=== PATIENT | male | born 1960 | race Caucasian/White ===

== ENCOUNTER 2024-01-04 12:56 | Emergency (ER) | payer OTHER, SELFPAY ==
[2024-01-04 13:03] VITALS: BP 143/86; PULSE 84; RESP 16; TEMP 36.3; O2SAT 96
--- NOTE | 2024-01-04 13:07 | ED.WOUNDLAC ---
HPI - Wound/Laceration General Chief Complaint: Wound/Laceration Stated Complaint: Left Finger Injruy/Cut Source: patient Mode of arrival: ambulatory Limitations: no limitations History of Present Illness HPI narrative: 63-year-old male presented for complaint of laceration to the left thumb and right index finger. Injury occurred today using a new pocket knife to help get himself out of a [employer]ms. Applied Blood Stop, wrapped the finger with twine, and applied paper towels. Site continues to bleed. States he took 2 aspirin this morning for headache. Denies decreased ROM. Unsure of tetanus. Related Data Home Medications Medication Instructions Recorded Confirmed atorvastatin 10 mg tablet 10 mg PO DAILY 01/04/24 01/04/24 hydrochlorothiazide 12.5 mg tablet 12.5 mg PO DAILY 01/04/24 01/04/24 lisinopril 20 mg tablet 20 mg PO DAILY 01/04/24 01/04/24 nebivolol 5 mg tablet 5 mg PO DAILY 01/04/24 01/04/24 sildenafil 100 mg tablet 100 mg PO DAILY 01/04/24 01/04/24 tamsulosin 0.4 mg capsule 0.4 mg PO DAILY 01/04/24 01/04/24 valacyclovir 500 mg tablet 500 mg PO BID 01/04/24 01/04/24 Allergies Allergy/AdvReac Type Severity Reaction Status Date / Time No Known Allergies Allergy Unverified 01/04/24 13:05 Review of Systems Review of Systems: CONSTITUTIONAL: Denies body aches, fever, chills, or sweats. CARDIOVASCULAR: Denies chest pain, palpitations, or edema. RESPIRATORY: Denies cough or dyspnea. GASTROINTESTINAL: Denies abdominal pain, nausea, vomiting, or diarrhea. SKIN: laceration left index and thumb MUSCULOSKELETAL: Denies back pain, joint pain, or myalgia. NEUROLOGIC: Denies numbness, tingling, or weakness. [facility] Past Medical History Medical History (Updated 01/04/24 @ 14:34 by Reba Ferrell APRN) Hypertension Prostate cancer Comments At time of signature, I have reviewed and agree with nursing past medical, surgical, social and family history unless otherwise noted. Please see nursing chart for further information. There is no relevant family history pertinent to the presenting complaint Exam Narrative: GENERAL: Well-appearing HEAD: Normocephalic, atraumatic. CHEST: Clear to auscultation. HEART: Regular rate and rhythm. SKIN: Warm, dry. Left 2nd digit distal phalanx with approx 1cm linear laceration, mild gaping; Left 1st digit distal phalanx with <0.5cm linear laceration, mild gaping, bleeding. No nail or tendon involvement. NEURO: Alert and oriented x3. Extrem: Hand/finger images: 1. location of thumb lac 2. location of 2nd digit lac Course Course Emergency Course: Patient is aware of diagnosis, understands and agrees to treatment plan. Anticipatory guidance given. Patient agrees to follow-up as directed and is aware of reasons to seek care at the emergency department. Portions of this record may have been created with voice recognition software Level of Care: Express Care Visit Vital Signs Vital signs: Vital Signs Temperature 97.3 F L 01/04/24 13:03 Pulse Rate 84 01/04/24 13:03 Respiratory Rate 16 01/04/24 13:03 Blood Pressure 143/86 H 01/04/24 13:03 Pulse Oximetry 96 01/04/24 13:03 Temperature 97.3 F L 01/04/24 13:03 Pulse Rate 84 01/04/24 13:03 Respiratory Rate 16 01/04/24 13:03 Blood Pressure 143/86 H 01/04/24 13:03 Pulse Oximetry 96 01/04/24 13:03 Reviewed Procedures Laceration left 2nd digit: Date: 01/04/24 Size (cm): 1 Description: linear and clean Depth: simple, single layer Local Anesthetic: lidocaine 1% Amount of anesthesia used (mL): 3 Pre-repair: wound explored and irrigated (sterile water 50mL; cleansed with betadine) ====== Skin Level ====== Skin layer closed with: nylon Size (cm): 5-0 Number of sutures: 3 Technique: simple, interrupted ====== Subcutaneous Layer ====== ====== Muscle Layer ====== ====== Tendon Layer =
[2024-01-04] MEDS: TETANUS,DIPHTHERIA,AC PERTUSSIS ADULT (0.5 ML) BOOSTRIX IM (13:50)
== END 2024-01-04 14:12 | disposition home or self-care (01) ==
PROVIDERS: Emergency Provider Nurse Practitioner Family; PCP Nurse Practitioner Family
DX: S61.012A Laceration without foreign body of left thumb without damage to nail, initial encounter (principal); S61.211A Laceration without foreign body of left index finger without damage to nail, initial encounter; W26.0XXA Contact with knife, initial encounter; Z23 Encounter for immunization; I10 Essential (primary) hypertension; Z85.46 Personal history of malignant neoplasm of prostate
CPT/HCPCS: 12001; 90471; 90715; 99203; G0463

== ENCOUNTER 2024-01-14 16:24 | Emergency (ER) | payer OTHER, SELFPAY ==
--- NOTE | 2024-01-14 16:28 | ED.WOUNDLAC ---
HPI - Wound/Laceration General Stated Complaint: Stitch Removal Time Seen by Provider: 01/14/24 16:32 Source: patient and RN notes reviewed Mode of arrival: ambulatory Limitations: no limitations History of Present Illness HPI narrative: 63 year old male presents for suture removal. He had stitches placed in the 1st and 2nd digits of the left hand 10 days ago. He reports no concerns with healing of the wound, no erythema, tenderness, drainage. Related Data Home Medications Medication Instructions Recorded Confirmed atorvastatin 10 mg tablet 10 mg PO DAILY 01/04/24 01/04/24 hydrochlorothiazide 12.5 mg tablet 12.5 mg PO DAILY 01/04/24 01/04/24 lisinopril 20 mg tablet 20 mg PO DAILY 01/04/24 01/04/24 nebivolol 5 mg tablet 5 mg PO DAILY 01/04/24 01/04/24 sildenafil 100 mg tablet 100 mg PO DAILY 01/04/24 01/04/24 tamsulosin 0.4 mg capsule 0.4 mg PO DAILY 01/04/24 01/04/24 valacyclovir 500 mg tablet 500 mg PO BID 01/04/24 01/04/24 Allergies Allergy/AdvReac Type Severity Reaction Status Date / Time No Known Allergies Allergy Unverified 01/04/24 13:05 Review of Systems Review of Systems: CONSTITUTIONAL: Denies malaise, chills, sweats, or fever. EYES: Denies redness, or discharge. ENT: Denies rhinorrhea, congestion, swollen lips, swollen tongue CARDIOVASCULAR: Denies chest pain, palpitations, or edema. RESPIRATORY: Denies cough or dyspnea. GASTROINTESTINAL: Denies abdominal pain, nausea, vomiting SKIN: Reports rash MUSCULOSKELETAL: Denies joint pain or myalgia. NEUROLOGIC: Denies headache. All systems reviewed & are unremarkable except as noted in HPI and below PMFSH Past Medical History Medical History (Updated 01/14/24 @ 16:42 by Renetta Thorne NP) Hypertension Prostate cancer Comments At time of signature, agree with nursing past medical, surgical, social and family history. There is no relevant family history pertinent to the presenting complaint Exam Narrative: GENERAL: Well-appearing, well-nourished, and in no acute distress. HEAD: Normocephalic, atraumatic. EYES: PERRLA, conjunctivae clear ENT: Mucous membranes moist NECK: Supple. No lymphadenopathy CHEST: Clear to auscultation. No respiratory distress. HEART: Regular rate and rhythm. SKIN: Warm, dry. To well-approximated healed linear lacerations noted to the left hand on the 1st and 2nd digits, intact sutures noted -to sutures and the 2nd digit, 3 sutures in the 1st digit NEURO: Alert and oriented x3. PSYCH: Normal mood and affect Course Course Emergency Course: Patient is aware of diagnosis, understands and agrees to treatment plan. Anticipatory guidance given. Patient agrees to follow-up as directed and is aware of reasons to seek care at the emergency department. Portions of this record may have been created with voice recognition software Level of Care: Express Care Visit Vital Signs Vital signs: Reviewed. MDM - Wound/Laceration MDM Narrative Medical decision making narrative: Verbal consent was obtained. Wound well approximated, no erythema, induration, or discharge noted. Five sutures completely removed in a sterile fashion. Patient tolerated procedure well, no complications. Patient advised to look for and return for any signs of infection such as redness, swelling, discharge, or worsening pain. Critical Care Time Critical Care Time Critical Care Time: No Discharge Plan Discharge Clinical Impression: Visit for suture removal Patient Disposition: Home, Self-Care Condition: Stable Instructions: Stitches Removal (ED) Additional Instructions: AFTER the stitches are removed: Clean your wound as directed. Carefully wash your wound with soap and water. Pat the area dry with a clean towel. Protect your wound. Your wound can swell, bleed, or split open if it is stretched or bumped. You may need to wear a bandage that supports your wound until it is completely healed. Prescriptions: No Action ator
[2024-01-14 16:29] VITALS: BP 133/85; PULSE 80; RESP 16; TEMP 36.5; O2SAT 99
== END 2024-01-14 16:45 | disposition home or self-care (01) ==
PROVIDERS: Emergency Provider Nurse Practitioner; PCP Nurse Practitioner Family
DX: Z48.02 Encounter for removal of sutures (principal); I10 Essential (primary) hypertension; Z85.46 Personal history of malignant neoplasm of prostate
CPT/HCPCS: 99211; G0463